=== PATIENT | female | born 1945 | race Caucasian/White ===

== ENCOUNTER → 2017-10-03 | Outpatient (CLI) | payer MEDICARE, OTHER ==
[~2017-10-03] MED LIST: CONTRAST GIVEN MC PRN; IOHEXOL 300 MG/ML 100ML VIAL. ONE; IOHEXOL 300 MG/ML 50 ML VIAL. IJ ONE
--- NOTE | 2017-10-03 13:59 | RAD ---
Left breast ductogram, 10/03/2017: History: Left breast discharge Following cleansing of the left nipple, a single discharging duct was identified near the center of the nipple. It was successfully cannulated with a 27-gauge blunt-tipped cannula. Iodinated contrast material was injected and appropriate digital mammograms obtained. The preliminary CC image again demonstrates numerous secretory type calcifications in the left breast. There are additional clustered microcalcifications which have been shown to be stable. The ductal system centered at the 3-4 o'clock location was partially opacified. Some of the injected contrast preferentially spilled back out of the duct onto the surface of the patient. There is considerable ductal dilatation just deep to the nipple. The ductal branches demonstrate multiple stenotic segments intermixed with dilated segments. On several of the cc and ML images there is a suggestion of a small filling defect within an incompletely opacified, distended duct at the 3:00 location. No other filling defect is seen in the visualized ducts. IMPRESSION: 1. Ductal ectasia. 2. Incomplete opacification of the ducts due to technical factors. 3. Possible small filling defect in an incompletely opacified duct at the 3:00 location. Repeat ductography followed by a targeted ultrasound exam may be useful for further evaluation. Alternatively, surgical exploration of the duct following methylene blue dye instillation into the duct could be considered. Surgical consultation is suggested.
== END | disposition home or self-care (01) ==
LOC: MAMMO 08:46
PROVIDERS: ATTEND Physician Assistant Medical
DX: N60.42 Mammary duct ectasia of left breast (principal); N64.52 Nipple discharge; R92.1 Mammographic calcification found on diagnostic imaging of breast
CPT/HCPCS: 19030; 77053

== ENCOUNTER → 2017-11-13 | Outpatient (CLI) | payer MEDICARE, OTHER | END | disposition home or self-care (01) | LOC: US 12:20 | DX: N63.20 Unspecified lump in the left breast, unspecified quadrant (principal); N64.52 Nipple discharge | CPT/HCPCS: 76641 ==

== ENCOUNTER 2017-12-01 08:08 | Day surgery (SDC) | payer MEDICARE, OTHER ==
[2017-12-01] MEDS: IV RINGERS,LACTATED 1000ML 1,000 ML IV ×2 (07:00)
[~2017-12-01 08:08] MED LIST changes: -CONTRAST GIVEN MC PRN; +HYDROmorphone 2 MG/ML VIAL IV; -IOHEXOL 300 MG/ML 100ML VIAL. ONE; -IOHEXOL 300 MG/ML 50 ML VIAL. IJ ONE; +LIDOCAINE 1% PF 2 ML VIAL. ID; +MORPHINE SULFATE 2 MG/ML DISP.SYRIN. IV; +ONDANSETRON PF 4 MG/2 ML VIAL. IV; +PROCHLORPERAZINE 10 MG/2 ML VIAL. IV; +fentaNYL PF VIAL 100 MCG/2 ML VIAL IV
[2017-12-01] MEDS ORDERED: LIDOCAINE 2%/EPI 1:100,000 20 ML VIAL. IJ ×2 (08:30)
[2017-12-01] MEDS ORDERED: fentaNYL PF VIAL 100 MCG/2 ML VIAL ×2 (08:52)
[2017-12-01] MEDS ORDERED: LIDOCAINE 2% PF Vial for OR 5 ML VIAL. ×2 (08:52)
[2017-12-01] MEDS ORDERED: PROPOFOL 20 ML IV ×2 (08:52)
[2017-12-01] MEDS ORDERED: IV NORMAL SALINE 1000ML BAG 1,000 ML IV ×2 (09:00)
[2017-12-01] MEDS: IV NORMAL SALINE 1000ML BAG 1,000 ML IV ×2 (11:00)
[2017-12-01] MEDS ORDERED: SEVOFLURANE 31 TO 60 MINUTES. IH ×2 (11:03)
[2017-12-01] MEDS ORDERED: DEXAMETHASONE SOD PHOS 20 MG/5 ML VIAL. ×2 (11:03)
[2017-12-01] MEDS: BUPIVAC MPF-EPI 0.5%-1:200000 30 ML VIAL. INJ ×2 (11:08)
[2017-12-01] MEDS: METHYLENE BLUE 1% 10 ML VIAL. ×2 (11:08)
[2017-12-01] MEDS ORDERED: ONDANSETRON PF 4 MG/2 ML VIAL. ×2 (11:10)
[2017-12-01] MEDS ORDERED: PHENYLEPHRINE in 0.9% NACL PF 1 MG/10 ML SYRINGE. IV (11:20)
[2017-12-01] MEDS ORDERED: ceFAZolin 2GM PREMIX 2 GM/50 ML BAG IV ×2 (12:00)
[2017-12-01 12:25] LABS: POC GLUCOSE 136 mg/dL (70-99)
[2017-12-01] MEDS: HYDROcodone/APAP 5/325MG 1 TAB TABLET PO ×2 (12:41)
== END 2017-12-01 13:25 | disposition home or self-care (01) ==
LOC: SURG 08:08
DX: N64.52 Nipple discharge (principal); N63.0 Unspecified lump in unspecified breast; I10 Essential (primary) hypertension; E11.9 Type 2 diabetes mellitus without complications; D64.9 Anemia, unspecified; Z79.899 Other long term (current) drug therapy; Z98.41 Cataract extraction status, right eye; Z98.42 Cataract extraction status, left eye; Z72.89 Other problems related to lifestyle; Z90.49 Acquired absence of other specified parts of digestive tract; Z87.39 Personal history of other diseases of the musculoskeletal system and connective tissue; Z86.39 Personal history of other endocrine, nutritional and metabolic disease; Z88.1 Allergy status to other antibiotic agents; Z88.2 Allergy status to sulfonamides
CPT/HCPCS: 19083; 76098; 76942; 82962; 88305; C1769; J0690; J1100; J2370; J2405; J2704; J3010; J3490; Q9968

== ENCOUNTER → 2019-06-21 | Outpatient (CLI) | payer MEDICARE, OTHER ==
[2017-12-01 12:49] VITALS: BP 139/82
[~2019-06-21] MED LIST changes: +ALLO300T PO; +BIOT800T PO; +CHOL10003 PO; +COLC0.6T34 PO; +CYAN-25 SL; +DOCU50CA9 PO; +ESOM40CA PO; +ESTR0.45 PO; +FERR325T14 PO; +GABA-585 PO; +GLIM4TAB2 PO; +HYDR-3164 PO; -HYDROmorphone 2 MG/ML VIAL IV; +INSU100V13 SQ; -LIDOCAINE 1% PF 2 ML VIAL. ID; +LIRA0.6P2 SQ; +LOSA25TA54 PO; -MORPHINE SULFATE 2 MG/ML DISP.SYRIN. IV; -ONDANSETRON PF 4 MG/2 ML VIAL. IV; -PROCHLORPERAZINE 10 MG/2 ML VIAL. IV; -fentaNYL PF VIAL 100 MCG/2 ML VIAL IV
--- NOTE | 2019-06-21 11:50 | RAD ---
MR#: [id number] Date of Study: 06/21/2019 Ordering Physician: PINA MAKI, Referring Physician: YURIY KIRBY Tech: VIVIAN Kim APPROVED REPORT Test Type: Exercise Stress Nurse/Tech: Pam Crockett Test Indications: Chest pain Cardiac History: Kidney diseae, x-smoker, DM Medications: See Electronic Medical Record Medical History: See Electronic Medical Record Resting ECG: SR with BBB Resting Heart Rate: 88 bpm Resting Blood Pressure: 141/77mmHg Pretest Chest Pain: None Nurse/Tech Notes Lungs CTA, S1S2 Consent: The procedure was explained to the patient in lay terms. Informed consent was witnessed. Kdoi eout was entered into [facility]. History and Stress Test performed by pam Crockett RN Stress Symptoms Dyspnea, no chest pain POST EXERCISE Reason for Termination: Reached target heart rate Target HR: 131 Max HR: 141 bpm 95% of Maximum Predicted HR: 149 bpm Exercise duration: 4:14 min:sec, 2 Stage Max Blood Pressure: 174/77mmHg Blood Pressure response to exercise: Normal blood pressure response during stress. Heart Rate response to exercise: normal response Chest Pain: No. Arrhythmia: No. ST Change: No. INTERPRETATION Stress EKG Conclusion: The resting EKG shows a sinus rhythm, nonspecific ST-T wave changes and an inc omplete right bundle branch block. The stress EKG shows no significant changes from baseline. No EKG evidence of stress-induced ischemia. Imaging Protocol IMAGE PROTOCOL: Rest Tc-99m/stress Tc-99m 1 day Rest: Stress: Viability: Radiopharm.Tc99m NaynrqoerQa24d Sestamibi Mdvv20jKb 33mCi Duration 15min. 10min. Img Date 06/21/2019 06/21/2019 Inj-Img Vmrt31lfm. 60min. Post-Injection Exercise: 1 minute Rest Admin Site:IV - Left AntecubitalAdministrator:VIVIAN Kim Stress Admin Site: IV - Left AntecubitalAdministrator: ROSAURA Haywood, ARRT (R)(N) STRESS DATA End Diast. Vol.58.0mlAv. Heart Lmjl810.0bpm End Syst. Vol.12.0mlCO Index BSA0.0L/min Myocardial Qvie781.0gEject. Zbymltpo31.0% Stress Rates Pk. Fill Rate4.93EDV/secLVtime Pk. Fill 137.76msec Pk. Empty Rate5.93ESV/secLVtime Pk. Twuwa469.92msec 1/3 Pk. Fill0.73EDV/sec Stress Scores Regional WT2.00Summed WT7.00 Regional WM0.00Summed WM0.00 LV Perfusion The stress scans show no significant defects. The rest scans show no significant defects. Nuclear imaging shows no reversible ischemia or infarct. Wall Motion Ventricular systolic function is normal with no regional wall motion abnormalities and an ejection fr action of greater than 70%. LV Perf. Quant 17 Seg. SSS1.00 17 Seg. SRS2.00 17 Seg. SDS0.00 Stress Defect Extent (% LAD)0.00Rest Defect Extent (% LAD)0.00Rev. Defect Extent (% LAD)0.00 Stress Defect Extent (% LCX) 0.00Rest Defect Extent (% LCX)0.00Rev. Defect Extent (% LCX)0.00 Stress Defect Extent (% RCA)0.00Rest Defect Extent (% RCA)12.20Rev. Defect Extent (% RCA)0.00 Stress Defect Extent (% TORRI)0.00Rest Defect Extent (% TORRI)2.40Rev. Defect Extent (% TORRI)0.00 Conclusion 1. Fair exercise tolerance. 2. No chest pain reported with exertion. 3. No EKG evidence of stressed induced ischemia. 4. Nuclear imaging shows no reversible ischemia or infarct. 5. Left ventricular systolic function is normal with an ejection fraction of greater than 70%. 6. Low risk Lexiscan nuclear stress test. Signed by : Jermaine Sagastume MD Electronically Approved : 06/21/2019 11:49:34
== END | disposition home or self-care (01) ==
LOC: NM 07:20
PROVIDERS: ATTEND Internal Medicine Cardiovascular Disease
DX: I45.10 Unspecified right bundle-branch block (principal); Z87.891 Personal history of nicotine dependence; E11.9 Type 2 diabetes mellitus without complications
CPT/HCPCS: 78452; 93017; A9500

== ENCOUNTER → 2020-05-07 | Outpatient (CLI) | payer MEDICARE, OTHER ==
[2017-12-01 12:49] VITALS: BP 139/82
[~2020-05-07] MED LIST changes: -GLIM4TAB2 PO; +GLIM4TAB8 PO
[2020-05-11 13:11] LABS: KAPPA LAMBDA RATIO 1.08 (0.26-1.65); LAMBDA FREE 103.8 mg/L (5.7-26.3)
[2020-05-11 16:10] LABS: ALPHA 1 0.2 g/dL (0.0-0.4); ALPHA 2 0.5 g/dL (0.4-1.0); BETA 0.9 g/dL (0.7-1.3); GAMMA 1.5 g/dL (0.4-1.8); PROTEIN TOTAL 6.1 g/dL (6.0-8.5)
== END | disposition home or self-care (01) ==
LOC: ONCLAB 14:48
PROVIDERS: ATTEND Internal Medicine Hematology & Oncology
DX: N18.9 Chronic kidney disease, unspecified (principal); D63.1 Anemia in chronic kidney disease
CPT/HCPCS: 36415; 82607; 82746; 83520; 84165

== ENCOUNTER 2020-08-27 06:44 | Outpatient (CLI) | payer MEDICARE, OTHER ==
[2020-08-27] VITALS (8 sets, daily range): BP systolic 103–123; BP diastolic 59–66
[~2020-08-27] VITALS: Ht 167.6 cm; Wt 68.9 kg
[2020-08-27 07:30] LABS: BASO % 1 % (0-3); EOS # 0.1 x10^3/uL (0.0-0.7); EOS % 1 % (0-3); HEMATOCRIT 29.3 % (36.0-47.0); HEMOGLOBIN 9.5 g/dL (12.0-15.5); LYMPH # 0.9 x10^3/uL (1.0-4.8); LYMPH % 14 % (24-48); MEAN CORPUSCULAR HEMOGLOBIN 32 pg (25-35); MEAN CORPUSCULAR HGB CONC 33 g/dL (31-37); MEAN CORPUSCULAR VOLUME 99 fL (79-100); MONO # 0.3 x10^3/uL (0.0-1.1); MONO % 5 % (0-9); NEUT # 5.2 x10^3/uL (1.8-7.7); NEUT % 79 % (31-73); PLATELET COUNT 121 x10^3/uL (140-400); RED BLOOD COUNT 2.97 x10^6/uL (3.50-5.40); WHITE BLOOD COUNT 6.6 x10^3/uL (4.0-11.0)
[2020-08-27] MEDS ORDERED: EPOE200014 SQ (07:34)
[2020-08-27 07:37] LABS: CREATININE 2.2 mg/dL (0.6-1.0); GFR 21.9
[2020-08-27 07:41] LABS: PROTHROMBIN TIME PATIENT 14.8 SEC (11.7-14.0)
[2020-08-27 07:43] LABS: ALBUMIN 2.9 g/dL (3.4-5.0); ALBUMIN/GLOBULIN RATIO 0.8 (1.0-1.7); TOTAL BILIRUBIN 0.8 mg/dL (0.2-1.0); TOTAL PROTEIN 6.6 g/dL (6.4-8.2)
[2020-08-27] MEDS ORDERED: LIDOCAINE WITH 8.4% SOD BICARB 3 ML DISP.SYRIN. ONE (08:40)
[2020-08-27] MEDS ORDERED: LIDOCAINE WITH 8.4% SOD BICARB 3 ML DISP.SYRIN. IJ ONE (08:45)
[2020-08-27 08:46] LABS: PLT ESTIMATE DECREASED (ADEQUATE)
[2020-08-27 08:50] LABS: OVALOCYTES MOD
[2020-08-27 08:51] LABS: ANISOCYTOSIS MOD
[2020-08-27] MEDS ORDERED: ALBUMIN HUMAN 25% 100 ML IV ONE ×2 (09:02→09:15)
--- NOTE | 2020-08-27 10:07 | NUR ---
Discharge Note: JOE SANFORD Discharge instructions and discharge home medications reviewed with Patient and a copy given. All questions have been answered and understanding verbalized. The following instructions and handouts were given: PARACENTESIS Discontinued IV AND BANDAID APPLIED, NO COMPLICATIONS. Patient discharged to HOME with FAMILY via PRIVATE VEHICLE.
[2020-08-27 11:08] LABS: BF CLARITY HAZY; BF COLOR YELLOW; BF MON % 66 %; BF PMN % 20 %; BF RBC COUNT 200 /cmm (Not Established); BF SOURCE ASCITES; BF WBC COUNT 318 /cmm (Not Established)
[2020-08-27 11:09] LABS: BF OTHER % 14 %
--- NOTE | 2020-08-28 09:18 | RAD ---
Procedure: Ultrasound guided paracentesis Clinical Indication: Adult female with abdominal ascites Sedation: Local anesthesia only Antibiotics: None Fluoro Time: None Contrast: Not applicable Sterility: The procedure was performed in its entirety using appropriate elements of sterile technique. Consent: The procedure was explained in its entirety to the patient or the patients designated collections representative by a member of the treatment team, including a discussion of the risks, benefits and commonly accepted alternatives to the procedure, as well as the expected consequences of no therapy whatsoever. Discussion of the risks included, but was not limited to, those that are most frequent and those that are rare but possibly severe or life-threatening, as well as the possibility of unforeseen complications. Technique and Findings: Following informed consent, the patient was prepped and draped in the usual sterile fashion. Ultrasound interrogation of the abdomen revealed abdominal ascites. A hard copy ultrasound image was recorded. 1% Lidocaine was used to achieve local anesthesia over the area of interest, and a 6 Ecuadorean Flpo-P-Ldisubyo catheter was advanced into the peritoneal cavity under ultrasound guidance. 3800 cc of thin yellow ascites was then withdrawn. The catheter was removed and hemostasis was achieved with manual compression. Complications: No immediate Impression: 1. Ultrasound-guided paracentesis as described
--- NOTE | 2020-08-28 16:10 | PATHOLOGY ---
Note [facility] Accession Number: [id number] TESTS RESULT FLAG UNITS REF RANGE LAB Clinician Provided Cytology Information No. of containers..01 Other (Miscellaneous) Source: ASCITES DIAGNOSIS: 02 ASCITES NEGATIVE FOR MALIGNANT EPITHELIAL CELLS. MESOTHELIAL CELLS ARE PRESENT. THIS INTERPRETATION INCLUDES EVALUATION OF A CELL BLOCK. MESOTHELIAL CELLS WITH REACTIVE CHANGES ARE PRESENT WITH BACKGROUND PREDOMINANTLY CHRONIC INFLAMMATORY CELLS AND RED BLOOD CELLS. Pathologist ICD10: 02 R18.8 Signed out by: Evon Carrillo MD, Pathologist NPI- [id number] Performed by: Kizzy Garcia, Tooling Supervisor ([facility]) Gross description: 30ML, YELLOW, 1 TP 1 CB /LCS 08/27/2020 1544 Local FLAG LEGEND: L-Low Normal,H-High Normal,LL-Alert Low,HH-Alert High <-Panic Low,>-Panic High,A-Abnormal,AA-Critical Abnormal Performed at: [facility] [address] [place] [address] Gene Garcia MD, [address] [facility] [address] [place] [address] Jacob Perez MD, Specimen Comment: A courtesy copy of this report has been sent to [phone], [phone] Specimen Comment: [id number], Specimen Comment: Report sent to ,DR ORTEZ / DR THEODORE Performed at: [address], [place], [place] [id number] MD Gene Garcia MD Phone: [phone]
== END 2020-08-27 10:00 | disposition home or self-care (01) ==
LOC: INTRAD 06:44
PROVIDERS: ATTEND Internal Medicine Gastroenterology
DX: R18.8 Other ascites (principal); I12.9 Hypertensive chronic kidney disease with stage 1 through stage 4 chronic kidney disease, or unspecified chronic kidney disease; N18.4 Chronic kidney disease, stage 4 (severe); E11.22 Type 2 diabetes mellitus with diabetic chronic kidney disease; K21.9 Gastro-esophageal reflux disease without esophagitis; M19.90 Unspecified osteoarthritis, unspecified site; M10.9 Gout, unspecified; Z90.49 Acquired absence of other specified parts of digestive tract; Z98.890 Other specified postprocedural states; Z79.899 Other long term (current) drug therapy; Z79.84 Long term (current) use of oral hypoglycemic drugs; Z87.891 Personal history of nicotine dependence; Z72.89 Other problems related to lifestyle; Z88.2 Allergy status to sulfonamides; Z88.8 Allergy status to other drugs, medicaments and biological substances
CPT/HCPCS: 36415; 49083; 80053; 82042; 84157; 85025; 85610; 87071; 87075; 89050; C1892; J3490; P9046

== ENCOUNTER 2020-11-04 07:28 | Outpatient (CLI) | payer MEDICARE, OTHER ==
[~2020-11-04] VITALS: Ht 167.6 cm; Wt 72.6 kg
[2020-11-04] VITALS (8 sets, daily range): BP systolic 107–135; BP diastolic 64–72
[~2020-11-04 07:28] MED LIST changes: +EPOE200014 SQ
[2020-11-04] MEDS ORDERED: FURO40TA4 PO (07:54)
[2020-11-04] MEDS ORDERED: BIOT5000 PO (07:54)
[2020-11-04] MEDS ORDERED: SPIR25TA5 PO (07:54)
[2020-11-04] MEDS ORDERED: FAMO20TA5 PO (07:54)
[2020-11-04] MEDS ORDERED: COLE1TAB2 PO (07:54)
[2020-11-04] MEDS ORDERED: SACC250C PO (07:54)
[2020-11-04] MEDS ORDERED: ASPI-630 PO (07:54)
[2020-11-04] MEDS ORDERED: LIDOCAINE WITH 8.4% SOD BICARB 3 ML DISP.SYRIN. ONE (08:07)
[2020-11-04 08:12] LABS: BASO % 1 % (0-3); EOS # 0.2 x10^3/uL (0.0-0.7); EOS % 7 % (0-3); HEMATOCRIT 28.3 % (36.0-47.0); HEMOGLOBIN 9.2 g/dL (12.0-15.5); LYMPH # 1.1 x10^3/uL (1.0-4.8); LYMPH % 31 % (24-48); MEAN CORPUSCULAR HEMOGLOBIN 33 pg (25-35); MEAN CORPUSCULAR HGB CONC 32 g/dL (31-37); MEAN CORPUSCULAR VOLUME 100 fL (79-100); MONO # 0.2 x10^3/uL (0.0-1.1); MONO % 7 % (0-9); NEUT # 1.9 x10^3/uL (1.8-7.7); NEUT % 55 % (31-73); PLATELET COUNT 116 x10^3/uL (140-400); RED BLOOD COUNT 2.82 x10^6/uL (3.50-5.40); RED CELL DISTRIBUTION WIDTH 17.4 % (11.5-14.5); WHITE BLOOD COUNT 3.5 x10^3/uL (4.0-11.0)
[2020-11-04 08:22] LABS: PROTHROMBIN TIME PATIENT 15.5 SEC (11.7-14.0)
[2020-11-04] MEDS ORDERED: ALBUMIN HUMAN 25% 100 ML IV ONE ×3 (08:43→09:00)
[2020-11-04] MEDS ORDERED: LIDOCAINE WITH 8.4% SOD BICARB 3 ML DISP.SYRIN. IJ ONE (09:00)
[2020-11-04] MEDS ORDERED: ALBUMIN HUMAN 25% 50 ML IV ONE (09:00)
--- NOTE | 2020-11-04 09:49 | NUR ---
Discharge Note: VALARIE SANFORD Discharge instructions and discharge home medications reviewed with Patient and a copy given. All questions have been answered and understanding verbalized. The following instructions and handouts were given: paracentesis Discontinued lines and drains: Peripheral IV intact. Patient discharged to Home or Self Care withFamily Membervia Wheelchair
--- NOTE | 2020-11-04 10:23 | RAD ---
Procedure: Ultrasound guided paracentesis Clinical Indication: Adult female with abdominal ascites Sedation: Local anesthesia only Antibiotics: None Fluoro Time: None Contrast: Not applicable Sterility: The procedure was performed in its entirety using appropriate elements of sterile technique. Consent: The procedure was explained in its entirety to the patient or the patients designated sales donor recruitment representative by a member of the treatment team, including a discussion of the risks, benefits and commonly accepted alternatives to the procedure, as well as the expected consequences of no therapy whatsoever. Discussion of the risks included, but was not limited to, those that are most frequent and those that are rare but possibly severe or life-threatening, as well as the possibility of unforeseen complications. Technique and Findings: Following informed consent, the patient was prepped and draped in the usual sterile fashion. Ultrasound interrogation of the abdomen revealed abdominal ascites. A hard copy ultrasound image was recorded. 1% Lidocaine was used to achieve local anesthesia over the area of interest, and a 6 Icelandic Tjns-Q-Kkzlsalh catheter was advanced into the peritoneal cavity under ultrasound guidance. 4300 cc of thin yellow ascites was then withdrawn. The catheter was removed and hemostasis was achieved with manual compression. Complications: No immediate Impression: 1. Ultrasound-guided paracentesis as described
== END 2020-11-04 10:00 | disposition home or self-care (01) ==
LOC: INTRAD 07:28
PROVIDERS: ATTEND Internal Medicine Gastroenterology
DX: K74.69 Other cirrhosis of liver (principal); R18.8 Other ascites; K21.9 Gastro-esophageal reflux disease without esophagitis; M10.9 Gout, unspecified; I12.9 Hypertensive chronic kidney disease with stage 1 through stage 4 chronic kidney disease, or unspecified chronic kidney disease; E11.22 Type 2 diabetes mellitus with diabetic chronic kidney disease; N18.4 Chronic kidney disease, stage 4 (severe); M19.90 Unspecified osteoarthritis, unspecified site; Z90.710 Acquired absence of both cervix and uterus; Z98.890 Other specified postprocedural states; Z87.891 Personal history of nicotine dependence; Z79.82 Long term (current) use of aspirin; Z79.84 Long term (current) use of oral hypoglycemic drugs; Z79.899 Other long term (current) drug therapy; Z88.2 Allergy status to sulfonamides; Z88.8 Allergy status to other drugs, medicaments and biological substances
CPT/HCPCS: 36415; 49083; 85025; 85610; C1892; J3490; P9046

== ENCOUNTER 2020-12-17 07:27 | Outpatient (CLI) | payer MEDICARE, OTHER ==
[~2020-12-17] VITALS: Ht 167.6 cm; Wt 78.0 kg
[~2020-12-17 07:27] MED LIST changes: +ASPI-630 PO; +BIOT5000 PO; +COLE1TAB2 PO; +FAMO20TA5 PO; +FURO40TA4 PO; +SACC250C PO; +SPIR25TA5 PO
[2020-12-17] MEDS ORDERED: LIDOCAINE WITH 8.4% SOD BICARB 3 ML DISP.SYRIN. ONE (07:47)
[2020-12-17 07:56] VITALS: BP 133/67
[2020-12-17] MEDS ORDERED: LIDOCAINE WITH 8.4% SOD BICARB 3 ML DISP.SYRIN. INJ ONE (08:00)
[2020-12-17 08:02] LABS: BASO % 1 % (0-3); EOS # 0.2 x10^3/uL (0.0-0.7); EOS % 6 % (0-3); HEMATOCRIT 28.6 % (36.0-47.0); HEMOGLOBIN 9.2 g/dL (12.0-15.5); LYMPH # 1.2 x10^3/uL (1.0-4.8); LYMPH % 32 % (24-48); MEAN CORPUSCULAR HEMOGLOBIN 33 pg (25-35); MEAN CORPUSCULAR HGB CONC 32 g/dL (31-37); MEAN CORPUSCULAR VOLUME 101 fL (79-100); MONO # 0.3 x10^3/uL (0.0-1.1); MONO % 9 % (0-9); NEUT % 53 % (31-73); PLATELET COUNT 116 x10^3/uL (140-400); RED BLOOD COUNT 2.84 x10^6/uL (3.50-5.40); RED CELL DISTRIBUTION WIDTH 18.3 % (11.5-14.5); WHITE BLOOD COUNT 3.7 x10^3/uL (4.0-11.0)
[2020-12-17 08:11] LABS: CALCIUM 8.7 mg/dL (8.5-10.1); CREATININE 2.9 mg/dL (0.6-1.0); GFR 15.9; POTASSIUM 4.1 mmol/L (3.5-5.1)
[2020-12-17 08:16] LABS: PROTHROMBIN TIME PATIENT 15.5 SEC (11.7-14.0)
[2020-12-17 08:47] VITALS: BP 124/76
[2020-12-17 08:57] VITALS: BP 132/66
[2020-12-17] MEDS ORDERED: ALBUMIN HUMAN 25% 100 ML IV ONE ×2 (09:05→09:30)
[2020-12-17 09:12] VITALS: BP 131/68
[2020-12-17 09:20] VITALS: BP 127/72
[2020-12-17] MEDS ORDERED: ALBUMIN HUMAN 25% 50 ML IV ONE (09:30)
[2020-12-17 09:56] VITALS: BP 124/63
--- NOTE | 2020-12-17 12:10 | RAD ---
Procedure: Ultrasound guided paracentesis Clinical Indication: Adult female with recurrent ascites Sedation: Local anesthesia only Antibiotics: None Fluoro Time: None Contrast: Not applicable Sterility: The procedure was performed in its entirety using appropriate elements of sterile technique. Consent: The procedure was explained in its entirety to the patient or the patients designated student services representative by a member of the treatment team, including a discussion of the risks, benefits and commonly accepted alternatives to the procedure, as well as the expected consequences of no therapy whatsoever. Discussion of the risks included, but was not limited to, those that are most frequent and those that are rare but possibly severe or life-threatening, as well as the possibility of unforeseen complications. Technique and Findings: Following informed consent, the patient was prepped and draped in the usual sterile fashion. Ultrasound interrogation of the abdomen revealed abdominal ascites. A hard copy ultrasound image was recorded. 1% Lidocaine was used to achieve local anesthesia over the area of interest, and a 6 Colombian Hqdo-Y-Xvcsissn catheter was advanced into the peritoneal cavity under ultrasound guidance. 6000 cc of thin yellow ascites was then withdrawn. The catheter was removed and hemostasis was achieved with manual compression. Complications: No immediate Impression: 1. Ultrasound-guided paracentesis as described
== END 2020-12-17 10:44 | disposition home or self-care (01) ==
LOC: INTRAD 07:27
PROVIDERS: ATTEND Internal Medicine Gastroenterology
DX: R18.8 Other ascites (principal); I12.9 Hypertensive chronic kidney disease with stage 1 through stage 4 chronic kidney disease, or unspecified chronic kidney disease; E11.22 Type 2 diabetes mellitus with diabetic chronic kidney disease; N18.4 Chronic kidney disease, stage 4 (severe); K21.9 Gastro-esophageal reflux disease without esophagitis; M19.90 Unspecified osteoarthritis, unspecified site; M10.9 Gout, unspecified; Z90.49 Acquired absence of other specified parts of digestive tract; Z98.890 Other specified postprocedural states; Z90.710 Acquired absence of both cervix and uterus; Z79.82 Long term (current) use of aspirin; Z79.899 Other long term (current) drug therapy; Z79.84 Long term (current) use of oral hypoglycemic drugs; Z87.891 Personal history of nicotine dependence; Z88.2 Allergy status to sulfonamides; Z88.8 Allergy status to other drugs, medicaments and biological substances
CPT/HCPCS: 36415; 49083; 80048; 85025; 85610; C1892; J3490; P9046

== ENCOUNTER 2021-01-28 08:24 | Outpatient (CLI) | payer MEDICARE, OTHER ==
[2021-01-28 09:06] VITALS: BP 119/62
[2021-01-28 10:09] LABS: BASO % 1 % (0-3); EOS # 0.1 x10^3/uL (0.0-0.7); EOS % 4 % (0-3); HEMATOCRIT 28.7 % (36.0-47.0); HEMOGLOBIN 9.5 g/dL (12.0-15.5); LYMPH # 1.1 x10^3/uL (1.0-4.8); LYMPH % 32 % (24-48); MEAN CORPUSCULAR HEMOGLOBIN 34 pg (25-35); MEAN CORPUSCULAR HGB CONC 33 g/dL (31-37); MEAN CORPUSCULAR VOLUME 101 fL (79-100); MONO # 0.4 x10^3/uL (0.0-1.1); MONO % 10 % (0-9); NEUT % 54 % (31-73); PLATELET COUNT 115 x10^3/uL (140-400); RED BLOOD COUNT 2.84 x10^6/uL (3.50-5.40); RED CELL DISTRIBUTION WIDTH 17.1 % (11.5-14.5); WHITE BLOOD COUNT 3.6 x10^3/uL (4.0-11.0)
[2021-01-28 10:16] LABS: CALCIUM 8.5 mg/dL (8.5-10.1); CREATININE 2.4 mg/dL (0.6-1.0); GFR 19.8; POTASSIUM 3.3 mmol/L (3.5-5.1)
[2021-01-28 10:55] VITALS: BP 111/62
[2021-01-28 11:12] LABS: PROTHROMBIN TIME PATIENT 14.3 SEC (11.7-14.0)
[2021-01-28] MEDS ORDERED: ALBUMIN HUMAN 25% 200 ML IV ONE (11:13)
[2021-01-28] MEDS ORDERED: ALBUMIN HUMAN 25% 100 ML IV ONE ×2 (11:15)
[2021-01-28 11:20] VITALS: BP 116/59
[2021-01-28 11:35] VITALS: BP 103/58
[2021-01-28 11:50] VITALS: BP 104/55
[2021-01-28 12:10] VITALS: BP 110/58
--- NOTE | 2021-01-28 12:25 | NUR ---
Discharge Note: VALARIE SANFORD Discharge instructions and discharge home medications reviewed with Patient and a copy given. All questions have been answered and understanding verbalized. The following instructions and handouts were given: Paracentesis Discontinued lines and drains: Right FA IV dc'd and tip intact. Patient discharged to home with brother via personal vehicle.
--- NOTE | 2021-01-29 08:41 | RAD ---
Ultrasound-guided paracentesis 01/29/2021 6:37 AM Procedure: The risks and benefits of the procedure were discussed the patient. Informed consent was obtained. A timeout procedure was performed. Sonographic evaluation of the abdomen was performed demonstrating ascites . The right lower quadrant was prepped and draped using maximum sterile barrier technique. 1% lidocaine without epinephrine was administered for local anesthesia. Real-time ultrasonographic guidance was used in passing a 5 Albanian Yueh catheter into the fluid collection. 7 L of serous ascites was removed. The catheter was removed and pressure held to achieve hemostasis. A sterile dressing was applied. Impression: Successful ultrasound-guided paracentesis
== END 2021-01-28 12:28 | disposition home or self-care (01) ==
LOC: INTRAD 08:24
PROVIDERS: ATTEND Internal Medicine Gastroenterology
DX: R18.8 Other ascites (principal); I12.9 Hypertensive chronic kidney disease with stage 1 through stage 4 chronic kidney disease, or unspecified chronic kidney disease; E11.22 Type 2 diabetes mellitus with diabetic chronic kidney disease; N18.4 Chronic kidney disease, stage 4 (severe); K21.9 Gastro-esophageal reflux disease without esophagitis; M19.90 Unspecified osteoarthritis, unspecified site; M10.9 Gout, unspecified; Z99.2 Dependence on renal dialysis; Z90.49 Acquired absence of other specified parts of digestive tract; Z90.710 Acquired absence of both cervix and uterus; Z98.890 Other specified postprocedural states; Z88.2 Allergy status to sulfonamides; Z88.8 Allergy status to other drugs, medicaments and biological substances; Z87.891 Personal history of nicotine dependence; Z72.89 Other problems related to lifestyle; Z20.822 Contact with and (suspected) exposure to COVID-19
CPT/HCPCS: 36415; 49083; 80048; 85025; 85610; 87426; P9046; U0003

== ENCOUNTER → 2021-02-11 | Outpatient (CLI) | payer MEDICARE, OTHER ==
[2021-01-28 12:10] VITALS: BP 110/58
[2021-02-11 14:57] LABS: BASO % 1 % (0-3); EOS # 0.2 x10^3/uL (0.0-0.7); EOS % 6 % (0-3); HEMATOCRIT 28.9 % (36.0-47.0); HEMOGLOBIN 9.7 g/dL (12.0-15.5); LYMPH # 1.1 x10^3/uL (1.0-4.8); LYMPH % 31 % (24-48); MEAN CORPUSCULAR HEMOGLOBIN 34 pg (25-35); MEAN CORPUSCULAR HGB CONC 34 g/dL (31-37); MEAN CORPUSCULAR VOLUME 102 fL (79-100); MONO # 0.4 x10^3/uL (0.0-1.1); MONO % 11 % (0-9); NEUT # 1.8 x10^3/uL (1.8-7.7); NEUT % 52 % (31-73); PLATELET COUNT 115 x10^3/uL (140-400); RED BLOOD COUNT 2.83 x10^6/uL (3.50-5.40); RED CELL DISTRIBUTION WIDTH 17.6 % (11.5-14.5); WHITE BLOOD COUNT 3.5 x10^3/uL (4.0-11.0)
[2021-02-11 15:14] LABS: CALCIUM 8.9 mg/dL (8.5-10.1); CREATININE 3.4 mg/dL (0.6-1.0); GFR 13.2
[2021-02-11 15:21] LABS: % BASOS 2 % (0-3); % EOS 6 % (0-5); % LYMPHS 32 % (24-48); % MONOS 10 % (0-10); % SEGS 50 % (35-66); ALBUMIN/GLOBULIN RATIO 0.8 (1.0-1.7); OVALOCYTES MANY; PLT ESTIMATE DECREASED (ADEQUATE); TOTAL BILIRUBIN 0.9 mg/dL (0.2-1.0); TOTAL PROTEIN 6.9 g/dL (6.4-8.2)
[2021-02-11 15:22] LABS: SCHISTOCYTES OCC
[2021-02-11 15:23] LABS: ANISOCYTOSIS SLIGHT
== END ==
LOC: ONCLAB 14:33
PROVIDERS: ATTEND Physician Assistant
DX: D63.1 Anemia in chronic kidney disease (principal)
CPT/HCPCS: 36415; 80053; 82105; 83615; 85007; 85025

== ENCOUNTER 2021-02-23 08:22 | Outpatient (CLI) | payer MEDICARE, OTHER ==
[~2021-02-23] VITALS: Ht 167.6 cm; Wt 68.0 kg
[2021-02-23 08:32] VITALS: BP 100/59
[2021-02-23 09:50] VITALS: BP 107/62
[2021-02-23] MEDS ORDERED: ALBUMIN HUMAN 25% 100 ML IV ONE ×2 (09:55→10:00)
[2021-02-23 10:00] VITALS: BP 117/60
[2021-02-23 10:12] VITALS: BP 112/58
[2021-02-23 10:27] VITALS: BP 110/68
[2021-02-23 10:38] VITALS: BP 105/58
--- NOTE | 2021-02-23 10:38 | NUR ---
pt discharged to home with family. Pt ambulated and tolerated PO. PIV dc'd
--- NOTE | 2021-02-23 13:43 | RAD ---
Ultrasound-guided paracentesis 02/23/2021 11:40 AM Procedure: The risks and benefits of the procedure were discussed the patient. Informed consent was obtained. A timeout procedure was performed. Sonographic evaluation of the abdomen was performed demonstrating ascites . The right lower quadrant was prepped and draped using maximum sterile barrier technique. 1% lidocaine without epinephrine was administered for local anesthesia. Real-time ultrasonographic guidance was used in passing a 5 Spanish Yueh catheter into the fluid collection. 3.9 L of serous ascites was removed. The catheter was removed and pressure held to achieve hemostasis. A sterile dressing was applied. Impression: Successful ultrasound-guided paracentesis
== END 2021-02-23 10:39 | disposition home or self-care (01) ==
LOC: INTRAD 08:22
PROVIDERS: ATTEND Internal Medicine Gastroenterology
DX: K70.31 Alcoholic cirrhosis of liver with ascites (principal); I12.9 Hypertensive chronic kidney disease with stage 1 through stage 4 chronic kidney disease, or unspecified chronic kidney disease; N18.4 Chronic kidney disease, stage 4 (severe); E11.22 Type 2 diabetes mellitus with diabetic chronic kidney disease; K21.9 Gastro-esophageal reflux disease without esophagitis; M10.9 Gout, unspecified; M19.90 Unspecified osteoarthritis, unspecified site; Z99.2 Dependence on renal dialysis; Z79.899 Other long term (current) drug therapy; Z98.890 Other specified postprocedural states; Z90.49 Acquired absence of other specified parts of digestive tract; Z87.891 Personal history of nicotine dependence; Z79.82 Long term (current) use of aspirin; Z72.89 Other problems related to lifestyle; Z88.2 Allergy status to sulfonamides; Z88.8 Allergy status to other drugs, medicaments and biological substances
CPT/HCPCS: 49083; P9046

== ENCOUNTER 2021-03-08 23:33 | Emergency (ER) | payer MEDICARE, OTHER ==
[~2021-03-08] VITALS: Ht 167.6 cm; Wt 68.2 kg
--- NOTE | 2021-03-09 00:29 | PHYS DOC ---
Past Medical History Past Medical History: Diabetes-Type II, Renal Failure, Other Additional Past Medical Histor: Cirrhosis of liver Past Surgical History: Cholecystectomy, Hysterectomy Smoking Status: Former Smoker Alcohol Use: None General Adult EDM: Chief Complaint: CONTISPATION HPI: HPI: Patient is a 75 year old female presents with the chief complaint of constipation. States last BM on monday. States tried to have BM tonight and fells a Review of Systems: Review of Systems: Constitutional: Denies fever or chills. [] Eyes: Denies change in visual acuity. [] HENT: Denies nasal congestion or sore throat. [] Respiratory: Denies cough or shortness of breath. [] Cardiovascular: Denies chest pain or edema. [] GI: Denies abdominal pain, nausea, vomiting, bloody stools or diarrhea. [] : Denies dysuria. [] Musculoskeletal: Denies back pain or joint pain. [] Integument: Denies rash. [] Neurologic: Denies headache, focal weakness or sensory changes. [] Endocrine: Denies polyuria or polydipsia. [] Lymphatic: Denies swollen glands. [] Psychiatric: Denies depression or anxiety. [] Heart Score: C/O Chest Pain: N/A Risk Factors: Risk Factors: DM, Current or recent (<one month) smoker, HTN, HLP, family history of CAD, obesity. Risk Scores: Score 0 - 3: 2.5% MACE over next 6 weeks - Discharge Home Score 4 - 6: 20.3% MACE over next 6 weeks - Admit for Clinical Observation Score 7 - 10: 72.7% MACE over next 6 weeks - Early Invasive Strategies Allergies: Allergies: Allergies Coded Allergies Type Severity Reaction Last Updated Verified Sulfa (Sulfonamide Antibiotics) Allergy Intermediate Hives 12/01/17 No ibuprofen Allergy Intermediate Hives 12/01/17 No Physical Exam: PE: Constitutional: Well developed, well nourished, no acute distress, non-toxic appearance. [] HENT: Normocephalic, atraumatic, bilateral external ears normal, oropharynx moist, no oral exudates, nose normal. [] Eyes: PERRLA, EOMI, conjunctiva normal, no discharge. [] Neck: Normal range of motion, no tenderness, supple, no stridor. [] Cardiovascular:Heart rate regular rhythm, no murmur [] Lungs & Thorax: Bilateral breath sounds clear to auscultation [] Abdomen: Bowel sounds normal, soft, no tenderness, no masses, no pulsatile masses. [] Skin: Warm, dry, no erythema, no rash. [] Back: No tenderness, no CVA tenderness. [] Extremities: No tenderness, no cyanosis, no clubbing, ROM intact, no edema. [] Neurologic: Alert and oriented X 3, normal motor function, normal sensory function, no focal deficits noted. [] Psychologic: Affect normal, judgement normal, mood normal. [] Current Patient Data: Vital Signs: Vital Signs Date Time Temp Pulse Resp B/P (MAP) Pulse Ox O2 Delivery O2 Flow Rate FiO2 03/08/ 23:45 98.0 89 18 122/59 (80) 100 Room Air 98.0 EKG: EKG: [] Radiology/Procedures: Radiology/Procedures: [] Impression: IMPRESSION: 3 views of chest and abdomen obtained. Calcific atherosclerosis with cardiac silhouette otherwise unremarkable. There is some air seen within the soft tissues overlying the left shoulder and axillary region. Right-sided vascular catheter with tip at the superior vena cava. No focal airspace consolidation. Catheter within the pelvis. Degenerative changes of the spine and hips. Stool is seen throughout the colon with a grossly nonobstructive bowel gas pattern. Course & Med Decision Making: Course & Med Decision Making Pertinent Labs and Imaging studies reviewed. (See chart for details) [] Was evaluated for chief complaint. Work-up consisted of radiologic imaging. Results reviewed and discussed with patient. Chest x-ray and no bowel obstruction stool without the colon. Treatment included enema with no relief. Patient then underwent digital disc impaction by myself. Patient tolerated procedure large amount of stool removed from the rectum. Patient was discharged home with GoLYTELY. Dragon Disclaimer: [employer] Disclaimer: This electronic medical record was generated, in whole or in part, using a voice recognition dictation system. Departure Departure Impression: Primary Impression: Constipation Disposition: HOME / SELF CARE / HOMELESS Condition: STABLE Referrals: RICKY THEODORE (PCP) Patient Instructions: Constipation, Adult Scripts Peg 3350/Na Sulf,Bicarb,Cl/Kcl (GOLYTELY SOLUTION) 4,000 Ml Soln.recon 4000 ML PO 1X for 1 Day, #1 MISC 8-10 oz q 10-15 minutes until stool Prov: CHAS CÁRDENAS DO 03/09/21 CHAS CÁRDENAS DO March 09, 2021 00:29
--- NOTE | 2021-03-09 00:43 | RAD ---
INDICATION: Reason: constipation / Spl. Instructions: / History: COMPARISON: January 2020 IMPRESSION: 3 views of chest and abdomen obtained. Calcific atherosclerosis with cardiac silhouette otherwise unr emarkable. There is some air seen within the soft tissues overlying the left shoulder and axillary re gion. Right-sided vascular catheter with tip at the superior vena cava. No focal airspace consolidati on. Catheter within the pelvis. Degenerative changes of the spine and hips. Stool is seen throughout the colon with a grossly nonobstructive bowel gas pattern. Electronically signed by: Brian Orellana MD (03/09/2021 12:40 AM) [id number]
[2021-03-09 02:12] VITALS: BP 115/60
[2021-03-09] MEDS ORDERED: PEG4000S8 PO (02:16)
[2021-03-09] MEDS ORDERED: POLYETHYLENE GLYCOL 3350 BTL 238 GM POWDER PO ONE (02:30)
== END 2021-03-09 02:35 | disposition home or self-care (01) ==
LOC: ER 23:33
DX: K59.00 Constipation, unspecified (principal); E11.22 Type 2 diabetes mellitus with diabetic chronic kidney disease; N18.9 Chronic kidney disease, unspecified; Z90.49 Acquired absence of other specified parts of digestive tract; Z90.710 Acquired absence of both cervix and uterus; Z87.891 Personal history of nicotine dependence; Z88.2 Allergy status to sulfonamides; Z88.8 Allergy status to other drugs, medicaments and biological substances
CPT/HCPCS: 74022; 99285-25

== ENCOUNTER → 2021-07-02 | Outpatient (CLI) | payer MEDICARE, OTHER ==
[~2021-07-02] MED LIST changes: +PEG4000S8 PO
--- NOTE | 2021-07-02 16:48 | RAD ---
07/02/2021 3:15 PM Complete abdominal ultrasound Duplex and hepatic ultrasound Clinical History: Reason: BILIARY CIRRHOSIS/ELEVATED LFT'S / Spl. Instructions: / History: Technique: Ultrasound examination of the abdomen was performed, and multiple static images were subm itted for review. Duplex pedicle ultrasound was also performed including color Doppler imaging spectr al analysis. Comparison: None Findings: Visualized portions of the pancreas are prominent. Pancreas is poorly visualized. Visualized aorta and IVC are unremarkable. The liver is normal in size. Hepatic echotexture is coarsened. No focal hepatic lesions are identifie d. Liver contour appears mildly nodular. The gallbladder is surgically absent. Spleen is enlarged rachell suring 14 cm longitudinally. Portal venous flow appears to be in the normal direction within normal velocity. Portal vein velocity is 26 cm a second. Right left portal vein appear to be grossly patent. Hepatic veins appear grossly patent. Splenic vein appears to be grossly patent. Trace ascites around the liver noted. kidney measures 9.2 x 3.9 x 4.1 cm. Renal cortical thinning is present. Left kidney is atrophic in appearance measuring 9.0 x 3.6 x 4.8 cm. IMPRESSION: 1. Nodular contour of the liver with hepatic coarsening. Trace perihepatic ascites. 2. Splenomegaly 3. Normal direction of velocity of the portal vein 4. Mild prominence of the pancreas. Consider CT for further characterization as clinically indicated. Electronically signed by: Castillo Mendes MD (07/02/2021 4:46 PM) [id number]
== END ==
LOC: US 15:07
PROVIDERS: ATTEND Internal Medicine Geriatric Medicine
DX: R16.1 Splenomegaly, not elsewhere classified (principal); K74.5 Biliary cirrhosis, unspecified; R18.8 Other ascites; R79.89 Other specified abnormal findings of blood chemistry; Z90.49 Acquired absence of other specified parts of digestive tract
CPT/HCPCS: 76700; 93975

== ENCOUNTER → 2021-07-23 | Outpatient (CLI) | payer MEDICARE, OTHER ==
--- NOTE | 2021-07-23 16:43 | CARD ---
MR#: [id number] Date of Study: 07/23/2021 Ordering Physician: PINA MAKI, Referring Physician: PINA MAKI, Tech: Suzi Stack [employer]UST APPROVED REPORT EXAM: Two-dimensional and M-mode echocardiogram with Doppler and color Doppler. Other Information Quality : AverageHR: 82bpm Rhythm : NSR INDICATION Murmur 2D DIMENSIONS RVDd3.0 (2.9-3.5cm)Left Atrium(2D)3.4 (1.6-4.0cm) IVSd1.0 (0.7-1.1cm)Aortic Root(2D)2.9 (2.0-3.7cm) LVDd4.0 (3.9-5.9cm)LVOT Diameter2.1 (1.8-2.4cm) PWd1.0 (0.7-1.1cm)LVDs2.3 (2.5-4.0cm) FS (%) 42.8 %SV52.1 ml Aortic Valve AoV Peak Lucas.164.3cm/sAoV VTI37.3cm AO Peak GR.10.8mmHgLVOT Peak Lucas.117.8cm/s AO Mean GR.5mmHgAVA (VMAX)2.48cm2 Pulmonary Valve PV Peak Zassemje759.4cm/s Tricuspid Valve TR P. Szegzlrw822fb/sTR Peak Gr.32mmHg LEFT VENTRICLE The left ventricle is normal size. There is normal left ventricular wall thickness. The left ventricu lar systolic function is normal. LV ejection fraction is 55 to 60%. There is normal LV segmental wall motion. Transmitral Doppler flow pattern is Grade I-abnormal relaxation pattern. RIGHT VENTRICLE The right ventricle is normal size. There is normal right ventricular wall thickness. The right ventr icular systolic function is normal. ATRIA The left atrium size is normal. The right atrium size is normal. AORTIC VALVE The aortic valve is normal in structure and function. Doppler and Color Flow revealed trace aortic re gurgitation. There is no significant aortic valvular stenosis. MITRAL VALVE The mitral valve is normal in structure and function. There is no evidence of mitral valve prolapse. There is no mitral valve stenosis. Doppler and Color-flow revealed trace mitral regurgitation. TRICUSPID VALVE The tricuspid valve is normal in structure and function. Doppler and Color Flow revealed mild tricusp id regurgitation. Esitmated PAP 30 mmHg. There is no tricuspid valve stenosis. PULMONIC VALVE The pulmonary valve is normal in structure and function. Doppler and Color Flow revealed no pulmonic valvular regurgitation. GREAT VESSELS The aortic root is normal in size. The ascending aorta is normal in size. The IVC is normal in size a nd collapses >50% with inspiration. PERICARDIAL EFFUSION There is no evidence of significant pericardial effusion. Critical Notification Critical Value: No <Conclusion> The left ventricle is normal size. The left ventricular systolic function is normal. LV ejection fraction is 55 to 60%. Doppler and Color Flow revealed trace aortic regurgitation. There is no significant aortic valvular stenosis. Doppler and Color-flow revealed trace mitral regurgitation. Doppler and Color Flow revealed mild tricuspid regurgitation. Esitmated PAP 30 mmHg. Signed by : Jermaine Sagastume MD Electronically Approved : 07/23/2021 16:42:53
== END ==
LOC: ECHO 14:10
PROVIDERS: ATTEND Internal Medicine Cardiovascular Disease
DX: I07.1 Rheumatic tricuspid insufficiency (principal); I95.9 Hypotension, unspecified; R01.1 Cardiac murmur, unspecified
CPT/HCPCS: 93306

== ENCOUNTER → 2021-08-17 | Outpatient (CLI) | payer MEDICARE, OTHER ==
[2021-08-17 10:14] LABS: BASO % 1 % (0-3); EOS # 0.2 x10^3/uL (0.0-0.7); EOS % 3 % (0-3); HEMATOCRIT 30.2 % (36.0-47.0); HEMOGLOBIN 9.7 g/dL (12.0-15.5); LYMPH # 0.8 x10^3/uL (1.0-4.8); LYMPH % 15 % (24-48); MEAN CORPUSCULAR HEMOGLOBIN 35 pg (25-35); MEAN CORPUSCULAR HGB CONC 32 g/dL (31-37); MEAN CORPUSCULAR VOLUME 109 fL (79-100); MONO # 0.6 x10^3/uL (0.0-1.1); MONO % 11 % (0-9); NEUT # 3.6 x10^3/uL (1.8-7.7); NEUT % 70 % (31-73); PLATELET COUNT 121 x10^3/uL (140-400); RED BLOOD COUNT 2.76 x10^6/uL (3.50-5.40); RED CELL DISTRIBUTION WIDTH 18.3 % (11.5-14.5); WHITE BLOOD COUNT 5.1 x10^3/uL (4.0-11.0)
[2021-08-17 10:42] LABS: CALCIUM 8.7 mg/dL (8.5-10.1); CREATININE 8.7 mg/dL (0.6-1.0); GFR 4.5; POTASSIUM 5.5 mmol/L (3.5-5.1)
[2021-08-17 10:47] LABS: ALBUMIN 2.2 g/dL (3.4-5.0); ALBUMIN/GLOBULIN RATIO 0.6 (1.0-1.7); TOTAL BILIRUBIN 0.6 mg/dL (0.2-1.0)
== END ==
LOC: ONCLAB 09:59
PROVIDERS: ATTEND Physician Assistant
DX: N18.9 Chronic kidney disease, unspecified (principal); D63.1 Anemia in chronic kidney disease
CPT/HCPCS: 36415; 80053; 85025

== ENCOUNTER → 2022-02-15 | Outpatient (CLI) | payer MEDICARE, OTHER ==
[2022-02-15 09:13] LABS: BASO % 1 % (0-3); EOS # 0.5 x10^3/uL (0.0-0.7); EOS % 10 % (0-3); HEMATOCRIT 25.4 % (36.0-47.0); HEMOGLOBIN 8.6 g/dL (12.0-15.5); LYMPH % 22 % (24-48); MEAN CORPUSCULAR HEMOGLOBIN 36 pg (25-35); MEAN CORPUSCULAR HGB CONC 34 g/dL (31-37); MEAN CORPUSCULAR VOLUME 106 fL (79-100); MONO # 0.5 x10^3/uL (0.0-1.1); MONO % 12 % (0-9); NEUT # 2.5 x10^3/uL (1.8-7.7); NEUT % 56 % (31-73); PLATELET COUNT 114 x10^3/uL (140-400); RED BLOOD COUNT 2.41 x10^6/uL (3.50-5.40); RED CELL DISTRIBUTION WIDTH 17.4 % (11.5-14.5); WHITE BLOOD COUNT 4.6 x10^3/uL (4.0-11.0)
[2022-02-15 09:31] LABS: CALCIUM 8.8 mg/dL (8.5-10.1); CREATININE 9.7 mg/dL (0.6-1.0); GFR 3.9; POTASSIUM 4.9 mmol/L (3.5-5.1)
[2022-02-15 09:36] LABS: ALBUMIN 2.2 g/dL (3.4-5.0); ALBUMIN/GLOBULIN RATIO 0.6 (1.0-1.7); TOTAL BILIRUBIN 0.5 mg/dL (0.2-1.0); TOTAL PROTEIN 6.1 g/dL (6.4-8.2)
== END ==
LOC: ONCLAB 08:52
PROVIDERS: ATTEND Internal Medicine Hematology & Oncology
DX: N18.9 Chronic kidney disease, unspecified (principal); D63.1 Anemia in chronic kidney disease
CPT/HCPCS: 36415; 80053; 82607; 82728; 82746; 83540; 83550; 83921; 85025

== ENCOUNTER → 2022-03-15 | Outpatient (CLI) | payer MEDICARE, OTHER ==
[2022-03-15 15:58] LABS: BASO % 0 % (0-3); EOS # 0.3 x10^3/uL (0.0-0.7); EOS % 7 % (0-3); HEMOGLOBIN 8.5 g/dL (12.0-15.5); LYMPH # 0.9 x10^3/uL (1.0-4.8); LYMPH % 18 % (24-48); MEAN CORPUSCULAR HEMOGLOBIN 35 pg (25-35); MEAN CORPUSCULAR HGB CONC 34 g/dL (31-37); MEAN CORPUSCULAR VOLUME 104 fL (79-100); MONO # 0.6 x10^3/uL (0.0-1.1); MONO % 13 % (0-9); NEUT % 62 % (31-73); PLATELET COUNT 93 x10^3/uL (140-400); RED BLOOD COUNT 2.41 x10^6/uL (3.50-5.40); RED CELL DISTRIBUTION WIDTH 16.8 % (11.5-14.5); WHITE BLOOD COUNT 4.9 x10^3/uL (4.0-11.0)
[2022-03-15 16:26] LABS: CALCIUM 8.4 mg/dL (8.5-10.1); CREATININE 9.5 mg/dL (0.6-1.0); POTASSIUM 3.6 mmol/L (3.5-5.1)
[2022-03-15 16:32] LABS: ALBUMIN 2.5 g/dL (3.4-5.0); ALBUMIN/GLOBULIN RATIO 0.8 (1.0-1.7); TOTAL BILIRUBIN 0.6 mg/dL (0.2-1.0); TOTAL PROTEIN 5.6 g/dL (6.4-8.2)
== END ==
LOC: ONCLAB 15:03
PROVIDERS: ATTEND Internal Medicine Hematology & Oncology
DX: D50.8 Other iron deficiency anemias (principal); D63.1 Anemia in chronic kidney disease
CPT/HCPCS: 36415; 80053; 85025